=== PATIENT | male | born 1935 | race Caucasian/White ===

== ENCOUNTER → 2016-11-11 | Outpatient (CLI) | payer MEDICARE, OTHER ==
[~2016-11-11] MED LIST: ALIGN PO; AMBIEN 5MG TABLE5 MG PO; AMOXICILLIN 8751 TAB PO; ASACOL HD800 MG PO; ASPIRIN 32325 MG/TA1 PO; ASPIRIN 32325 MG/TAB PO; ASPIRIN 81M81 MG/TA2 PO; CELEBREX 200MG200 MG; CELEBREX 200MG200 MG PO; CELEXA 20MG20 MG/TAB PO; CIPRO 500MG TA500 MG PO; COREG 3.123.125 MG/T PO; DICYCLOMINE HCL10 MG PO; FLOMAX 0.40.4 MG/CAP PO; FOLIC ACID 40400 MCG; FOLIC ACID 40400 MCG PO; IMURAN 50MG TAB50 MG; IMURAN 50MG TAB50 MG PO; IRON; IRON325 M1 PO; LASIX 20MG TABL20 MG PO; LEXAPRO 10MG10 MG PO; LIBRAX CAPSULE1 CAP PO; LIPITOR 80MG80 MG PO; MESTINON 6060 MG/TAB PO; MESTINON60 MG PO; METRONIDAZOLE500 MG PO; MITIGARE0.6 MG PO; NATURAL C500 MG PO; NORCO 325 MG-51 TAB PO; PERCOCET 325 MG1 TA2 PO; PERCOCET 5/321 UDTAB PO; PLAVIX 75MG TAB75 MG PO; PROBIOTIC FORMU1 CAP PO; RAPAFLO8 MG PO; SYNTHROID0.125 MG/T PO; SYNTHROID0.137 MG PO; TAMSULOSIN 0.4 MG; ULTRAM 50MG TAB50 MG PO; VITAMIN C500 MG; ZOFRAN ODT4 MG PO; [UNRECOGNIZED DRUG - OTHER]; [UNRECOGNIZED DRUG - OTHER]; asacol
== END ==
LOC: COL.RAD 12:04
DX: M51.26 Other intervertebral disc displacement, lumbar region (principal); D18.09 Hemangioma of other sites

== ENCOUNTER 2018-07-15 09:17 | Emergency (ER) | payer OTHER, MEDICARE ==
[~2018-07-15] VITALS: Ht 182.9 cm; Wt 88.2 kg
[2018-07-15 09:17] VITALS: TEMP 98.5
[~2018-07-15 09:17] MED LIST changes: +CEPHALEXIN500 M1 PO; +RELAFEN 50500 MG/TAB PO; +ZYLOPRIM 100MG100 MG PO
[2018-07-15 09:44] LABS: BASO # 0.1 (0.0-0.2); BASO % 0.7 % (0.0-2.0); EOS # 0.4 (0.0-0.7); GRAN # 4.7 (1.4-6.5); GRAN % 70.1 % (42.2-75.2); HEMATOCRIT 43.2 % (42.0-52.0); HEMOGLOBIN 14.4 g/dl (13.5-18.0); LYMPH % 14.2 % (20.0-51.0); MEAN CELL VOLUME 91 fl (80.0-100.0); MEAN CORPUSCULAR HEMOGLOBIN 30 pg (27.0-31.0); MEAN CORPUSCULAR HGB CONC 33 g/dl (33.0-37.0); MEAN PLATELET VOLUME 10.7 fl (7.4-10.4); MONO # 0.6 (0.1-0.6); MONO % 8.9 % (1.7-9.3); PLATELET COUNT 175 K/mm3 (130-400); RED BLOOD COUNT 4.74 M/mm3 (4.20-5.60)
[2018-07-15 09:47] LABS: INR 1.1 (0.8-3.0)
[2018-07-15 09:54] LABS: ALANINE AMINOTRANSFERASE 36 U/L (21-72); ALBUMIN 3.9 gm/dL (3.5-5.0); ALKALINE PHOSPHATASE 57 U/L (50-136); ANION GAP 6 mmol/L (7-16); AST,SGOT 33 U/L (15-37); BILIRUBIN,TOTAL 1.4 mg/dL (0.0-1.0); BLOOD UREA NITROGEN 22 mg/dL (9-20); CALCIUM 9.1 mg/dL (8.4-10.2); CARBON DIOXIDE 32 mmol/L (22-30); CHLORIDE 100 mmol/L (98-107); CREATININE, serum 1.13 mg/dL (0.66-1.25); GLUCOSE 98 mg/dL (74-106); LIPASE 64 U/L (23-300); POTASSIUM 4.1 mmol/L (3.4-5.0); SODIUM 139 mmol/L (137-145); TOTAL PROTEIN 7.4 gm/dL (6.4-8.2)
[2018-07-15 10:07] LABS: TROPONIN-I < 0.012 ng/mL (0.000-0.034)
[2018-07-15 11:05] VITALS: BP 131/79; PULSE 68
== END 2018-07-15 11:05 | disposition short-term general hospital (02) ==
LOC: COL.ER 09:17
PROVIDERS: Emergency Medicine
DX: I25.10 Atherosclerotic heart disease of native coronary artery without angina pectoris (principal); E03.9 Hypothyroidism, unspecified; Z87.891 Personal history of nicotine dependence; Z79.82 Long term (current) use of aspirin
CPT/HCPCS: J1644; J7030

== ENCOUNTER 2018-12-25 23:36 | Emergency (ER) | payer MEDICARE, OTHER ==
[~2018-12-25] VITALS: Ht 182.9 cm; Wt 91.4 kg
[2018-12-25 23:42] VITALS: TEMP 97.6
[2018-12-26] LABS: BASO # 0.1 (0.0-0.2); BASO % 0.7 % (0.0-2.0); EOS # 0.3 (0.0-0.7); EOS % 3.9 % (0-4.0); GRAN # 4.9 (1.4-6.5); GRAN % 64.8 % (42.2-75.2); HEMATOCRIT 35.1 % (42.0-52.0); HEMOGLOBIN 11.8 g/dl (13.5-18.0); LYMPH # 1.6 (1.2-3.4); LYMPH % 20.4 % (20.0-51.0); MEAN CELL VOLUME 92 fl (80.0-100.0); MEAN CORPUSCULAR HEMOGLOBIN 31 pg (27.0-31.0); MEAN CORPUSCULAR HGB CONC 34 g/dl (33.0-37.0); MEAN PLATELET VOLUME 10.8 fl (7.4-10.4); MONO # 0.8 (0.1-0.6); MONO % 9.9 % (1.7-9.3); PLATELET COUNT 166 K/mm3 (130-400); RED BLOOD COUNT 3.81 M/mm3 (4.20-5.60); REDCELL DISTRIBUTION WIDTH-CV 13.2 % (11.5-14.5)
[2018-12-26 00:06] LABS: INR 1.1 (0.8-3.0); PROTHROMBIN TIME 12.5 SECONDS (9.7-12.8)
[2018-12-26 00:08] LABS: PARTIAL THROMBOPLASTIN TIME 31.1 SECONDS (26.0-37.0)
[2018-12-26 00:08] LABS: ALANINE AMINOTRANSFERASE 28 U/L (21-72); ALBUMIN 3.8 gm/dL (3.5-5.0); ALKALINE PHOSPHATASE 57 U/L (50-136); ANION GAP 8 mmol/L (7-16); AST,SGOT 31 U/L (15-37); BILIRUBIN,TOTAL 0.8 mg/dL (0.0-1.0); BLOOD UREA NITROGEN 39 mg/dL (9-20); CALCIUM 8.9 mg/dL (8.4-10.2); CARBON DIOXIDE 28 mmol/L (22-30); CHLORIDE 101 mmol/L (98-107); CREATININE, serum 1.25 mg/dL (0.66-1.25); GLUCOSE 109 mg/dL (74-106); POTASSIUM 4.3 mmol/L (3.4-5.0); SODIUM 137 mmol/L (137-145); TOTAL PROTEIN 6.8 gm/dL (6.4-8.2)
[2018-12-26 00:20] LABS: TROPONIN-I < 0.012 ng/mL (0.000-0.035)
[2018-12-26 03:27] VITALS: BP 131/93; PULSE 87
== END 2018-12-26 03:15 | disposition short-term general hospital (02) ==
LOC: COL.ER 23:36
PROVIDERS: Emergency Medicine
DX: K52.9 Noninfective gastroenteritis and colitis, unspecified (principal); K62.89 Other specified diseases of anus and rectum; K92.2 Gastrointestinal hemorrhage, unspecified; I25.10 Atherosclerotic heart disease of native coronary artery without angina pectoris; Z79.82 Long term (current) use of aspirin; Z95.0 Presence of cardiac pacemaker; Z88.5 Allergy status to narcotic agent
CPT/HCPCS: A4216; J0696; J7030

== ENCOUNTER 2019-01-18 09:01 | Emergency (ER) | payer MEDICARE, OTHER ==
[~2019-01-18] VITALS: Ht 182.9 cm; Wt 90.9 kg
[2019-01-18 09:07] VITALS: TEMP 96.7
[2019-01-18 09:28] LABS: BASO % 0.7 % (0.0-2.0); EOS # 0.3 (0.0-0.7); EOS % 4.2 % (0-4.0); GRAN # 4.3 (1.4-6.5); GRAN % 71.3 % (42.2-75.2); HEMOGLOBIN 11.2 g/dl (13.5-18.0); LYMPH # 0.8 (1.2-3.4); LYMPH % 13.4 % (20.0-51.0); MEAN CELL VOLUME 93 fl (80.0-100.0); MEAN CORPUSCULAR HEMOGLOBIN 30 pg (27.0-31.0); MEAN CORPUSCULAR HGB CONC 32 g/dl (33.0-37.0); MEAN PLATELET VOLUME 10.6 fl (7.4-10.4); MONO # 0.6 (0.1-0.6); MONO % 9.9 % (1.7-9.3); PLATELET COUNT 206 K/mm3 (130-400); RED BLOOD COUNT 3.78 M/mm3 (4.20-5.60); REDCELL DISTRIBUTION WIDTH-CV 14.1 % (11.5-14.5)
[2019-01-18 09:29] LABS: HEMATOCRIT 35.1 % (42.0-52.0)
[2019-01-18 09:43] LABS: ALBUMIN 3.8 gm/dL (3.5-5.0); BILIRUBIN,TOTAL 0.6 mg/dL (0.0-1.0); C-REACTIVE PROTEIN 3.2 mg/dL (0.0-0.9); CALCIUM 8.9 mg/dL (8.4-10.2); CREATININE, serum 1.06 (0.66-1.25); POTASSIUM 3.8 mmol/L (3.4-5.0); TOTAL PROTEIN 7.3 gm/dL (6.4-8.2)
[2019-01-18] MEDS ORDERED: PROTONIX 40MG T40 MG PO (10:22)
[2019-01-18] MEDS ORDERED: LEVAQUIN 5500 MG/TA1 PO (10:23)
[2019-01-18] MEDS ORDERED: AMOXICILLIN 50500 MG PO (10:23)
[2019-01-18 11:40] VITALS: BP 128/76; PULSE 74
== END 2019-01-18 11:41 | disposition home or self-care (01) ==
LOC: COL.ER 09:01
PROVIDERS: Family Medicine
DX: M47.9 Spondylosis, unspecified (principal); Z87.442 Personal history of urinary calculi
CPT/HCPCS: J1170; J1885

== ENCOUNTER 2019-08-02 11:49 | Emergency (ER) | payer MEDICARE, OTHER ==
[~2019-08-02] VITALS: Ht 182.9 cm; Wt 86.4 kg
[~2019-08-02 11:49] MED LIST changes: +AMOXICILLIN 50500 MG PO; +LEVAQUIN 5500 MG/TA1 PO; +PROTONIX 40MG T40 MG PO
[2019-08-02 11:56] VITALS: TEMP 97.7
[2019-08-02 12:11] LABS: BASO # 0.1 (0.0-0.2); BASO % 0.8 % (0.0-2.0); EOS # 0.3 (0.0-0.7); EOS % 4.2 % (0-4.0); GRAN # 4.8 (1.4-6.5); GRAN % 66.1 % (42.2-75.2); HEMATOCRIT 43.5 % (42.0-52.0); HEMOGLOBIN 14.2 g/dl (13.5-18.0); LYMPH # 1.3 (1.2-3.4); LYMPH % 18.7 % (20.0-51.0); MEAN CELL VOLUME 91 fl (80.0-100.0); MEAN CORPUSCULAR HEMOGLOBIN 30 pg (27.0-31.0); MEAN CORPUSCULAR HGB CONC 33 g/dl (33.0-37.0); MEAN PLATELET VOLUME 10.5 fl (7.4-10.4); MONO # 0.7 (0.1-0.6); MONO % 9.9 % (1.7-9.3); PLATELET COUNT 198 K/mm3 (130-400); REDCELL DISTRIBUTION WIDTH-CV 13.6 % (11.5-14.5)
[2019-08-02 12:21] LABS: ALANINE AMINOTRANSFERASE 20 U/L (21-72); ALBUMIN 4.2 gm/dL (3.5-5.0); ALKALINE PHOSPHATASE 65 U/L (50-136); ANION GAP 10 mmol/L (7-16); AST,SGOT 32 U/L (15-37); BILIRUBIN,TOTAL 0.9 mg/dL (0.0-1.0); BLOOD UREA NITROGEN 23 mg/dL (9-20); CALCIUM 9.1 mg/dL (8.4-10.2); CARBON DIOXIDE 31 mmol/L (22-30); CHLORIDE 102 mmol/L (98-107); CREATININE, serum 1.16 (0.66-1.25); GLUCOSE 94 mg/dL (74-106); LIPASE 64 U/L (23-300); POTASSIUM 4.2 mmol/L (3.4-5.0); SODIUM 142 mmol/L (137-145); TOTAL PROTEIN 7.7 gm/dL (6.4-8.2)
[2019-08-02 12:35] LABS: TROPONIN-I < 0.012 ng/mL (0.000-0.035)
[2019-08-02] MEDS ORDERED: NITROSTAT0.4 MG/TAB SL (15:25)
[2019-08-02 15:30] VITALS: BP 148/97; PULSE 67
== END 2019-08-02 15:40 | disposition home or self-care (01) ==
LOC: COL.ER 11:49
PROVIDERS: Emergency Medicine
DX: R07.89 Other chest pain (principal); I10 Essential (primary) hypertension
CPT/HCPCS: J7030

== ENCOUNTER 2019-11-11 11:31 | Inpatient (IN) | payer MEDICARE, OTHER ==
[~2019-11-11] VITALS: Ht 180.3 cm; Wt 93.5 kg
[~2019-11-11 11:31] MED LIST changes: +NITROSTAT0.4 MG/TAB SL
[2019-12-15] VITALS (10 sets, daily range): BP systolic 99–140; BP diastolic 59–79; PULSE 57–70; TEMP 97.5–98.3
[2019-12-15] MEDS ORDERED: ASACOL HD800 MG PO (02:09)
[2019-12-15] MEDS ORDERED: ALIGN PO (02:10)
[2019-12-15] MEDS ORDERED: LEXAPRO 10MG10 MG PO (02:11)
[2019-12-15] MEDS ORDERED: PLAVIX 75MG TAB75 MG PO (02:13)
[2019-12-15] MEDS ORDERED: CYMBALTA 60MG60 MG PO (02:13)
[2019-12-15] MEDS ORDERED: ASPIRIN 81M81 MG/TA2 PO (06:17)
--- NOTE | 2019-12-15 10:05 | NUR ---
PATIENT IS A&O. VSS. DENIES PAIN IN LLE. PATIENT IS UNABLE TO MOVE BLE DUE TO POST OP BLOCK. LTK DRESSING IS CD&I WITH ACEWRAP AND ICE PACK INPLACE. LLE ELEVATED WITH PILLOW. TEDS & SCD'S TO BLE. PATIENT TOLERATING LIQUIDS AT BEDSIDE. NO C/O N/V. IV FLUIDS INFUSING INTO LEFT HAND IV. HEAD TO TOE ASSESSMENT WNL. AT BEDSIDE. CALL LIGHT IN REACH.
--- NOTE | 2019-12-15 10:48 | NUR ---
ANIYA met with the patient and his , Xochitl (ph#[phone]), to discuss discharge plan. The patient lives in [place] with his . He reports independence with ADLs and has a cane, walker, and crutches. The patient's PCP is Dr. Nixon Reid and he receives his medications at [facility] or through [facility]. He reports no difficulties obtaining his meds. The patient does not have advanced directives in EMR, but he states that he does have them completed. He states that his is his DPOA-HC. At this time, the patient plans to return home with his and receive outpatient PT at [facility]. The patient and report that they will need to see how the patient does with PT. The patient states that he had to go to [facility] after his last knee surgery. SW to continue to follow.
--- NOTE | 2019-12-15 11:57 | NUR ---
First visit from the debridging machine operator. Career Information Specialist visited with and then patient arrived. No needs right now.
--- NOTE | 2019-12-15 19:00 | NUR ---
PATIENT UP TO BATHROOM WITH ASSIST DURING CHANGE OF SHIFT REPORT FROM DAY SHIFT NURSE. ATTEMPTING TO VOID. IVF INFUSING WITH NO PROBLEMS.
--- NOTE | 2019-12-15 20:00 | NUR ---
Shift assessment complete. Patient in bed, awake. States pain 5/10 in left knee. Immobilizer to be placed after next dose of pain meds. Reminded pt to keep knee straight, as he is allowing his knee to wire turning machine operator to the left. Pillow placed to keep knee straight until immobilizer can be placed. Pt also states he is no longer having urinary issues, and does not need to be straight cathed at this time. Will continue to monitor. Denies further needs at this time. Call-light within reach, bed alarm on.
--- NOTE | 2019-12-15 20:59 | NUR ---
Patient unable to void, bladder scanned by Katelin SILVA for 600ml, patient reported voided scant amount of urine. Paged Franca BOLAÑOS regarding urinary status, orders given for st cath prn.
[2019-12-15] MEDS ORDERED: TYLENOL 500MG500 MG PO (21:09)
[2019-12-15] MEDS ORDERED: ROXICODONE 55 MG/TAB PO (21:09)
[2019-12-15] MEDS ORDERED: XARELTO10 MG PO (21:11)
[2019-12-16] VITALS: BP 103/65; PULSE 66; TEMP 98
--- NOTE | 2019-12-16 00:14 | NUR ---
PATIENT WANTING MED FOR SLEEP, REFUSED TO TAKE ORAL PAIN MED, STATES ROXICODONE KEEPS HIM AWAKE. PAGEViri KHANNA PAC.
--- NOTE | 2019-12-16 00:20 | NUR ---
CALL BACK FROM [facility] PAC, INFORMED OF PATIENT'S REQUEST FOR SLEEP MED, ORDER GIVEN FOR X1 DOSE AMBIEN 5 MG PO. SEE eMAR FOR MED GIVEN, PATIENT INFORMED AMBIEN IS ONE TIME ORDER.
--- NOTE | 2019-12-16 01:30 | NUR ---
PATIENT RESTING IN BED, OBSERVED SOME MOVEMENT BUT DOES NOT AWAKEN WHEN DOOR TO ROOM OPENED, BREATHING NONLABORED AND EVEN.
--- NOTE | 2019-12-16 03:58 | NUR ---
Resting with eyes closed, sleeping, does not awaken when door to room opened. Breathing nonlabored and even.
[2019-12-16 04:25] VITALS: BP 106/67; PULSE 66; TEMP 97.4
--- NOTE | 2019-12-16 07:32 | NUR ---
Patient resting in bed during change of shift report given to day shift nurse. Patient encouraged to take oral pain meds, discouraged IV pain meds use today.
--- NOTE | 2019-12-16 08:53 | NUR ---
PT UP TO BR VOIDED AND THEN TO RECLINER. PT OUT TO [facility] WITH THERAPY. AMBULATING WITH SLOW STEADY GAIT.
[2019-12-16 08:56] LABS: HEMOGLOBIN 12.2 g/dl (13.5-18.0)
[2019-12-16 09:01] LABS: HEMATOCRIT 36.8 % (42.0-52.0)
[2019-12-16 12:00] VITALS: BP 128/78; PULSE 74; TEMP 97.8
--- NOTE | 2019-12-16 15:07 | NUR ---
SW met with the patient to review discharge plan and to discuss PT's recommendation of home health vs outpatient PT. The patient reports that he already has an outpatient PT appointment set up on Friday, 12/19, at [facility]. He states that he would rather just pursue with outpatient PT and states he feels comfortable returning home. No other additional needs at this time, but SW to continue to follow as needed.
[2019-12-16 16:05] VITALS: BP 117/70; PULSE 73; TEMP 98.8
[2019-12-16 16:26] VITALS: BP 117/55; PULSE 58; TEMP 98.6
--- NOTE | 2019-12-16 17:28 | NUR ---
PT C/O INCREASING PAIN. PO PAIN MEDS GIVEN. PT CONTINUES TO BED KNEE WITH BED AND PILLOWS. PROVIDED EDUCATION ON IMPORTANCE OF MAINTAINING CORRECT POSITIONING FOR HEALING.
--- NOTE | 2019-12-16 23:03 | NUR ---
Patient in bed, awake. States pain 4/10 in left knee. Prn pain medication given per pt request. Knee immobilizer placed on left knee. Denies further needs at this time. Will continue to monitor.
[2019-12-16 23:40] VITALS: BP 129/74; PULSE 82
--- NOTE | 2019-12-16 23:40 | NUR ---
Patient in bed, c/o chest pain. States it radiates from left leg up to chest. VS stable, while obtaining VS, pt kept falling asleep. MAMI Peralta notified. STAT ekg ordered, RT notified. Hosp to consult for cardiac related issues. Will notify Sherice, LATISHA
--- NOTE | 2019-12-16 23:56 | NUR ---
LATISHA Smiley notified of hosp consult. STAT ekg already ordered. Nitro x1 given. Patient still c/o chest pain. LATISHA Smiley en route.
[2019-12-17] VITALS (7 sets, daily range): BP systolic 97–134; BP diastolic 58–80; PULSE 68–95; TEMP 97.9–98.6
--- NOTE | 2019-12-17 | NUR ---
Patient states chest pain has been relieved with nitro x1. BP 110/75
--- NOTE | 2019-12-17 00:14 | NUR ---
MAMI Peralta updated of pt status. Hosp consult in, LATISHA Smiley en route. Ekg done. Patient currently comfortable in bed, denies chest pain. Will continue to monitor.
--- NOTE | 2019-12-17 01:20 | NUR ---
Received report from Melanie. Smiley [employer] called to ask if Troponins were taken already. Called lab for blood extraction for stat troponin.
--- NOTE | 2019-12-17 02:20 | NUR ---
Patient request knee immobilizer to be placed on his left knee. SCD on both legs are placed. Patient states he doesn't have chest pain anymore. Follow up lab for blood extraction for troponin.
--- NOTE | 2019-12-17 03:55 | NUR ---
Patient was seen by ALEXANDRO Smiley. Aspirin one time given. No complains of chest pain.
[2019-12-17 03:57] LABS: ALBUMIN 3.8 gm/dL (3.5-5.0); BILIRUBIN,TOTAL 1.8 mg/dL (0.0-1.0); CALCIUM 8.5 mg/dL (8.4-10.2); CREATININE, serum 0.93 (0.66-1.25); MAGNESIUM 1.9 mg/dL (1.6-2.3); TOTAL PROTEIN 6.8 gm/dL (6.4-8.2)
--- NOTE | 2019-12-17 04:30 | NUR ---
Patient complains of pain on his left knee, 6/10. Oxyxodone PRN given. Informed [facility] that patient is for chest xray.
[2019-12-17 07:00] LABS: BASO % 0.3 % (0.0-2.0); EOS % 0.2 % (0-4.0); GRAN % 78.2 % (42.2-75.2); HEMOGLOBIN 11.1 g/dl (13.5-18.0); LYMPH % 8.5 % (20.0-51.0); MEAN CELL VOLUME 90 fl (80.0-100.0); MEAN CORPUSCULAR HEMOGLOBIN 30 pg (27.0-31.0); MEAN CORPUSCULAR HGB CONC 33 g/dl (33.0-37.0); MEAN PLATELET VOLUME 11.4 fl (7.4-10.4); MONO # 1.4 (0.1-0.6); MONO % 12.4 % (1.7-9.3); PLATELET COUNT 152 K/mm3 (130-400); RED BLOOD COUNT 3.74 M/mm3 (4.20-5.60); REDCELL DISTRIBUTION WIDTH-CV 13.3 % (11.5-14.5)
[2019-12-17 07:03] LABS: HEMATOCRIT 33.7 % (42.0-52.0)
[2019-12-17 07:13] LABS: CHOLESTEROL 100 mg/dL (120-200); CHOLESTEROL RISK RATIO 2.5; HDL CHOLESTEROL 39 mg/dL; LDL CHOLESTEROL 49 mg/dL; TRIGLYCERIDE 60 mg/dL
[2019-12-17 07:27] LABS: TROPONIN-I 3 HR POST INITIAL < 0.012 ng/mL (0.000-0.034)
--- NOTE | 2019-12-17 08:30 | NUR ---
Patient has been having a rough morning. He is rating pain at 10 on a 0-10 scale. Denies nausea. He stated the brace to his LLE is causing his pain to jump up. Shaheen BOLAÑOS, was here to see patient and explained the importance of wearing the brace. Morphine given to help with the patients pain. He is anxious and very worried about his pain. He was thinking he needs to have another surgery. Explained that the PA has already seen him and did not think he needs anything done. No other changes at this time. Call light within reach. Bed alarm on.
[2019-12-17] MEDS ORDERED: ZOFRAN 4MG T4 MG/TAB PO (11:08)
--- NOTE | 2019-12-17 15:00 | NUR ---
Patient is finally resting comfortably. Pain is controlled better this afternoon. No complaints of nausea. He attempted to get up once around lunch time by himself. He stated he thought it was ok. Discussed safety issues and that he needs to use his walker. Patient verbalized understanding. No other changes at this time. Call light within reach. Bed alarm on.
--- NOTE | 2019-12-17 15:40 | NUR ---
ANIYA met with the patient to review discharge plan and to discuss home health, outpatient therapy, and SNF. The patient's , Xochitl, was on speaker phone. The patient states that he is still having some trouble moving his leg and getting out of bed. He states that he would still prefer to just return home and pursue outpatient therapy. The patient's was supportive of his decision. ANIYA presented and explained the IM form to the patient. The patient verbalized understanding, signed, and he was provided a copy. ANIYA to continue to follow.
--- NOTE | 2019-12-17 18:00 | NUR ---
Patient has been sleepy. He wakes easily when talking to him. Denies nausea. Stated not having any pain at this time. He stated he did not want anymore pills because he is so sleepy. Explained that is from the pain medications and lack of sleep. No complaints of chest pain today. No other changes at this time.
--- NOTE | 2019-12-17 19:43 | NUR ---
Pt doing ok. Ambulating x1-standby assist. Doing well. Alert and mostly oriented, seems mildy confused. Has tried to get up multiple times without calling staff for help. Heart and lung sounds normal. Bowel sounds audible all quads. Urinating clear yellow urine, had some BM at shift change. Aquacell to Left knee. Pedal pulses present. PT denies needs at this time. Call light within reach, will continue to monitor. Bed alarm and chair alarm on.
--- NOTE | 2019-12-17 21:56 | NUR ---
Pt ambulated in hallway about 150 ft. tolerated well
[2019-12-18 00:55] VITALS: BP 113/69; PULSE 80; TEMP 98.1
[2019-12-18 03:58] VITALS: BP 133/81; PULSE 81; TEMP 98
--- NOTE | 2019-12-18 05:02 | NUR ---
Pt has done well throughout night. TEDS, scds, and cryocuff on. resting in bed, denies needs. call light within reach, will continue to monitor
--- NOTE | 2019-12-18 08:00 | NUR ---
PATIENT IS ORIENTED X2. PATIENT DISPLAYS OCCATIONAL FORGETFULNESS AND NEEDS REMINDER TO USE WALKER WITH ALL ACTIVITY. PATIENT STATES HE IS USE TO BEING VERY ACTIVE AND DOESN'T LIKE SITTING FOR LONG PERIODS. WBAT TO LLE. AQUACEL TO LTK IS CD&I WITH AQUACEL. TEDS TO BLE. POSITIVE PEDAL PULSES TO BLE. PATIENT EAT/DRINK/VOIDING SUFFICENT AMOUNTS. NO C/O N/V. NO IV SITE. TELE INPLACE. HEAD TO TOE ASSESSMENT WNL.
[2019-12-18 08:21] VITALS: BP 91/37; PULSE 83; TEMP 98.4
[2019-12-18 08:25] LABS: HEMOGLOBIN 10.8 g/dl (13.5-18.0)
[2019-12-18 08:26] LABS: HEMATOCRIT 32.5 % (42.0-52.0)
--- NOTE | 2019-12-18 11:35 | NUR ---
PATIENT DISCHARGE HOME VIA WC TO PERSONAL WITH FAMILY. GAVE DISCHARGE INSTRUCTIONS, PRESCRIPTION, AND FOLLOW UP APT. CALLED IN NEW SCRIPT FOR METOPROLOL 25MG PO BID, PER TO [facility]. ANSWERED ALL QUESTIONS/CONCERNS. PATIENT HAS NO IV SITE. TELE DC'D. PATIENT DRESSED AND READY FOR DISCHARGE.
== END 2019-12-18 11:35 | disposition home health service (06) | DRG 470 ==
LOC: JCC 12-14 07:30
PROVIDERS: Nurse Practitioner Family; Physician Assistant; ADMIT Orthopaedic Surgery
PROC: 0SRD0J9 Replacement of Left Knee Joint with Synthetic Substitute, Cemented, Open Approach (ICD-10-PCS; principal; 2019-12-15 07:30)
DX: M17.12 Unilateral primary osteoarthritis, left knee (principal); I50.22 Chronic systolic (congestive) heart failure; K50.90 Crohn's disease, unspecified, without complications; M10.9 Gout, unspecified; G70.00 Myasthenia gravis without (acute) exacerbation; I25.10 Atherosclerotic heart disease of native coronary artery without angina pectoris; E03.9 Hypothyroidism, unspecified; I11.0 Hypertensive heart disease with heart failure; I25.5 Ischemic cardiomyopathy; R33.9 Retention of urine, unspecified; K52.9 Noninfective gastroenteritis and colitis, unspecified; I25.2 Old myocardial infarction; K44.9 Diaphragmatic hernia without obstruction or gangrene; G47.33 Obstructive sleep apnea (adult) (pediatric); H26.9 Unspecified cataract; R07.9 Chest pain, unspecified; Z87.442 Personal history of urinary calculi; Z87.891 Personal history of nicotine dependence; Z85.46 Personal history of malignant neoplasm of prostate; Z95.5 Presence of coronary angioplasty implant and graft; Z96.651 Presence of right artificial knee joint; Z88.2 Allergy status to sulfonamides; Z88.8 Allergy status to other drugs, medicaments and biological substances
CPT/HCPCS: 99222; 99232-AI; A9284; C1776; J0690; J1100; J1940; J2250; J2270; J2274; J2370; J2704; J7120; J7121

== ENCOUNTER 2021-07-12 09:25 | Observation (INO) | payer MEDICARE, OTHER ==
[2021-07-12] VITALS (8 sets, daily range): BP systolic 109–145; BP diastolic 61–95; PULSE 51–68; TEMP 97.6–97.7
[~2021-07-12] VITALS: Ht 182.9 cm; Wt 89.9 kg
[~2021-07-12 09:25] MED LIST changes: +CYMBALTA 60MG60 MG PO; +ROXICODONE 55 MG/TAB PO; +TYLENOL 500MG500 MG PO; +XARELTO10 MG PO; +ZOFRAN 4MG T4 MG/TAB PO
[2021-07-12 10:03] LABS: BASO # 0.1 K/mm3 (0.0-0.2); BASO % 0.7 % (0.0-2.0); EOS # 0.3 K/mm3 (0.0-0.7); EOS % 4.1 % (0-4.0); GRAN # 4.8 K/mm3 (1.4-6.5); GRAN % 70.7 % (42.2-75.2); HEMATOCRIT 40.6 % (42.0-52.0); HEMOGLOBIN 13.6 g/dl (13.5-18.0); MEAN CELL VOLUME 90 fl (80.0-100.0); MEAN CORPUSCULAR HEMOGLOBIN 30 pg (27.0-31.0); MEAN CORPUSCULAR HGB CONC 34 g/dl (33.0-37.0); MEAN PLATELET VOLUME 11.5 fl (7.4-10.4); MONO # 0.6 K/mm3 (0.1-0.6); MONO % 9.2 % (1.7-9.3); PLATELET COUNT 185 K/mm3 (130-400); RED BLOOD COUNT 4.53 M/mm3 (4.20-5.60); REDCELL DISTRIBUTION WIDTH-CV 13.1 % (11.5-14.5)
[2021-07-12 10:22] LABS: ALANINE AMINOTRANSFERASE 45 U/L (0-55); ALBUMIN 3.7 gm/dL (3.4-4.8); ALKALINE PHOSPHATASE 61 U/L (0-750); ANION GAP 9 mmol/L (7-16); AST,SGOT 48 U/L (5-34); BILIRUBIN,TOTAL 1.3 mg/dL (0.2-1.2); BLOOD UREA NITROGEN 18 mg/dL (8-26); CALCIUM 8.9 mg/dL (8.4-10.2); CARBON DIOXIDE 24 mmol/L (23-31); CHLORIDE 107 mmol/L (98-107); CREATININE, serum 1.11 mg/dL (0.72-1.25); GLUCOSE 130 mg/dL (70-99); POTASSIUM 4.4 mmol/L (3.5-4.5); SODIUM 140 mmol/L (136-145); TOTAL PROTEIN 7.1 gm/dL (6.2-8.1)
[2021-07-12 10:33] LABS: TROPONIN-I < 0.010 ng/mL (0.00-0.033)
[2021-07-12] MEDS ORDERED: ASPIRIN 81M81 MG/TA2 PO (11:13)
--- NOTE | 2021-07-12 13:30 | NUR ---
SEE MERGE FOR ALL MEDICATION ADMINISTRATION TIMES, INTRA AND POST SEDATION ASSESSMENTS
--- NOTE | 2021-07-12 19:12 | NUR ---
PT DISCHARGED HOME ON STABLE CONDITION. D/C INSTRUCTIONS REVEIWED WITH PT. QUESTIONS AND CONCERSN ADDRESSED PT ESCORTED TO [facility] VIA WC FOR SON TO PICK PT UP
== END 2021-07-12 19:14 | disposition home or self-care (01) ==
LOC: COL.ER 09:25 → MEDICAL 13:37
PROVIDERS: Emergency Medicine; ADMIT Student in an Organized Health Care Education/Training Program
DX: I25.110 Atherosclerotic heart disease of native coronary artery with unstable angina pectoris (principal); I10 Essential (primary) hypertension; E78.5 Hyperlipidemia, unspecified; M10.9 Gout, unspecified; K21.9 Gastro-esophageal reflux disease without esophagitis; K50.90 Crohn's disease, unspecified, without complications; E05.00 Thyrotoxicosis with diffuse goiter without thyrotoxic crisis or storm; G70.00 Myasthenia gravis without (acute) exacerbation; G47.33 Obstructive sleep apnea (adult) (pediatric); Z90.89 Acquired absence of other organs; Z79.82 Long term (current) use of aspirin; Z20.822 Contact with and (suspected) exposure to COVID-19; Z79.899 Other long term (current) drug therapy; Z87.891 Personal history of nicotine dependence
CPT/HCPCS: C1769; G0378; G0379; J1644; J2250; J3010

== ENCOUNTER 2022-08-08 12:27 | Emergency (ER) | payer MEDICARE, OTHER ==
[~2022-08-08] VITALS: Ht 177.8 cm; Wt 86.8 kg
[2022-08-08 12:42] VITALS: TEMP 97.7
[2022-08-08 13:21] LABS: BASO % 0.5 % (0.0-2.0); EOS # 0.2 K/mm3 (0.0-0.7); EOS % 3.6 % (0.0-4.0); GRAN # 4.5 K/mm3 (1.4-6.5); GRAN % 70.7 % (42.2-75.2); HEMATOCRIT 39.5 % (42.0-52.0); HEMOGLOBIN 13.4 g/dl (13.5-18.0); LYMPH # 1.1 K/mm3 (1.2-3.4); LYMPH % 16.8 % (20.0-51.0); MEAN CELL VOLUME 89 fl (80.0-100.0); MEAN CORPUSCULAR HEMOGLOBIN 30 pg (27-31); MEAN CORPUSCULAR HGB CONC 34 g/dl (33.0-37.0); MEAN PLATELET VOLUME 10.8 fl (7.4-10.4); MONO # 0.5 K/mm3 (0.1-0.6); MONO % 8.2 % (1.7-9.3); PLATELET COUNT 169 K/mm3 (130-400); RED BLOOD COUNT 4.43 M/mm3 (4.20-5.60); REDCELL DISTRIBUTION WIDTH-CV 12.9 % (11.5-14.5)
[2022-08-08 13:30] LABS: ALANINE AMINOTRANSFERASE 26 U/L (0-55); ALBUMIN 3.6 gm/dL (3.4-4.8); ALKALINE PHOSPHATASE 57 U/L (40-150); ANION GAP 9 mmol/L (7-16); AST,SGOT 25 U/L (5-34); BILIRUBIN,TOTAL 1.5 mg/dL (0.2-1.2); BLOOD UREA NITROGEN 16 mg/dL (8-26); CALCIUM 8.5 mg/dL (8.4-10.2); CARBON DIOXIDE 25 mmol/L (23-31); CHLORIDE 106 mmol/L (98-107); CREATININE, serum 0.99 mg/dL (0.72-1.25); GLUCOSE 107 mg/dL (70-99); POTASSIUM 3.8 mmol/L (3.5-4.5); SODIUM 140 mmol/L (136-145); TOTAL PROTEIN 6.6 gm/dL (6.2-8.1)
[2022-08-08 13:38] LABS: TROPONIN-I < 0.010 ng/mL (0.00-0.033)
[2022-08-08 17:05] VITALS: BP 132/84; PULSE 60
== END 2022-08-08 17:09 | disposition home or self-care (01) ==
LOC: COL.ER 12:27
PROVIDERS: Emergency Medicine
DX: R07.89 Other chest pain (principal); Z95.5 Presence of coronary angioplasty implant and graft; Z87.891 Personal history of nicotine dependence; Z28.310 Unvaccinated for COVID-19

== ENCOUNTER 2023-02-05 16:33 | Emergency (ER) | payer MEDICARE, OTHER ==
[~2023-02-05] VITALS: Ht 180.3 cm; Wt 81.8 kg
[2023-02-05 16:41] VITALS: TEMP 98
[2023-02-05 17:17] LABS: BASO % 0.5 % (0.0-2.0); EOS # 0.1 K/mm3 (0.0-0.7); EOS % 1.7 % (0.0-4.0); GRAN # 5.9 K/mm3 (1.4-6.5); GRAN % 75.4 % (42.2-75.2); HEMATOCRIT 42.8 % (42.0-52.0); HEMOGLOBIN 14.5 g/dl (13.5-18.0); LYMPH % 12.9 % (20.0-51.0); MEAN CELL VOLUME 90 fl (80.0-100.0); MEAN CORPUSCULAR HEMOGLOBIN 31 pg (27-31); MEAN CORPUSCULAR HGB CONC 34 g/dl (33.0-37.0); MEAN PLATELET VOLUME 11.3 fl (7.4-10.4); MONO # 0.7 K/mm3 (0.1-0.6); MONO % 9.4 % (1.7-9.3); PLATELET COUNT 194 K/mm3 (130-400); RED BLOOD COUNT 4.76 M/mm3 (4.20-5.60); REDCELL DISTRIBUTION WIDTH-CV 13.5 % (11.5-14.5)
[2023-02-05 17:28] LABS: ALANINE AMINOTRANSFERASE 61 U/L (0-55); ALKALINE PHOSPHATASE 86 U/L (40-150); ANION GAP 11 mmol/L (7-16); AST,SGOT 35 U/L (5-34); BILIRUBIN,TOTAL 1.7 mg/dL (0.2-1.2); BLOOD UREA NITROGEN 15 mg/dL (8-26); CALCIUM 9.6 mg/dL (8.4-10.2); CARBON DIOXIDE 21 mmol/L (23-31); CHLORIDE 105 mmol/L (98-107); CREATININE, serum 0.94 mg/dL (0.72-1.25); GLUCOSE 129 mg/dL (70-99); SODIUM 137 mmol/L (136-145); TOTAL PROTEIN 7.4 gm/dL (6.2-8.1)
[2023-02-05 17:36] LABS: TROPONIN-I < 0.010 ng/mL (0.00-0.033)
[2023-02-05 19:02] VITALS: BP 123/68; PULSE 75
[2023-02-05] MEDS ORDERED: ZOFRAN 4MG T4 MG/TAB PO (19:29)
[2023-02-05 19:51] LABS: COLLECTION METHOD CLEAN CATCH
[2023-02-05 20:31] LABS: SQUAMOUS EPITHELIAL None Seen /hpf (0-10); URINE BACTERIA None Seen /hpf (NONE SEEN); URINE RBC None Seen /hpf (0-2)
[2023-02-05 20:34] LABS: URINE APPEARANCE Clear (CLEAR/HAZY); URINE COLOR Yellow (YELLOW)
[2023-02-05 20:35] LABS: URINE BLOOD Negative (NEGATIVE); URINE GLUCOSE Negative (NEGATIVE); URINE KETONE 1+ (NEGATIVE); URINE NITRATE Negative (NEGATIVE); URINE PROTEIN(semi-quant) Negative (NEGATIVE); URINE UROBILINOGEN 0.2 (NEGATIVE)
== END 2023-02-05 20:33 | disposition home or self-care (01) ==
LOC: COL.ER 16:33
PROVIDERS: Physician Assistant
DX: K52.9 Noninfective gastroenteritis and colitis, unspecified (principal); K62.89 Other specified diseases of anus and rectum; E80.7 Disorder of bilirubin metabolism, unspecified; J32.9 Chronic sinusitis, unspecified; R74.01 Elevation of levels of liver transaminase levels; Z98.890 Other specified postprocedural states; Z90.49 Acquired absence of other specified parts of digestive tract
CPT/HCPCS: J2405; J7030; Q9967

== ENCOUNTER → 2024-08-03 | Outpatient (CLI) | payer MEDICARE, OTHER | LOC: COL.RAD 12:01 | DX: M47.816 Spondylosis without myelopathy or radiculopathy, lumbar region (principal); M51.360 Other intervertebral disc degeneration, lumbar region with discogenic back pain only ==